=== PATIENT | female | born 1940 | race Caucasian/White ===

== ENCOUNTER 2019-06-20 18:39 | Inpatient (IN) | payer MEDICARE ==
[~2019-06-20] VITALS: Ht 162.6 cm; Wt 72.6 kg
[~2019-06-20 18:39] MED LIST: ACETAMINOPHEN325 M1 PO; ADULT LOW DOSE81 MG PO; AVELOX 400 MG400 M1 PO; BACTRIM DS TAB1 EACH PO; CEFTIN500 MG PO; FLONASE 0.05%50 MCG NS; GLUCOPHAGE XR500 M1 PO; GLYBURIDE 5 MG T5 M1 PO; MEDROLDOSEPACK PO; MUCINEX TA600 MG/TA1 PO; OSELB75 PO; PHENERGAN 25 MG25 M1 PO; PROMETHAZINE-C120 ML PO; SIMVASTATIN80 MG PO; TESSALON PERLE100 MG PO; TRANSDERM-SCOP1 EACH TD; ULTRAM 50MG TAB50 MG; VENTOLIN HFA 1818 GM INH; ZOFRAN ODT4 MG PO; ZOFRAN4 MG; ZOFRAN4 MG PO; ZPAK PO
[2019-06-20 19:19] VITALS: BP 177/101
[2019-06-20] MEDS ORDERED: LEVEMIR100 UNIT/1 SUBQ (19:26)
[2019-06-20 20:02] LABS: INFLUENZA A ANTIGEN Negative (Negative); INFLUENZA B ANTIGEN Negative (Negative)
[2019-06-20 22:06] LABS: HEMATOCRIT 37.6 % (37.0-47.0); HEMOGLOBIN 12.8 gm/dL (12.0-15.0); MCH 28.6 pg (26.0-34.0); MCHC 34.1 g/dL (28.0-37.0); MCV 83.9 fL (80.0-100.0); MPV 7.5 fl. (7.2-11.1); NUCLEATED RBCS 0 /100WBC; PLATELET COUNT* 257 thou/uL (150-400); RBC 4.49 mil/uL (4.20-5.00); RDW-CV 13.4 % (10.5-14.5); WBC 9.7 thou/uL (4.0-11.0)
[2019-06-20 22:37] LABS: ABSOLUTE LYMPHOCYTES 0.6 thou/uL (0.8-5.3); ABSOLUTE MONOCYTES 0.6 thou/uL (0.0-1.2); ABSOLUTE NEUTROPHILS 8.5 thou/uL (1.6-8.1)
[2019-06-20 22:40] LABS: PLATELET ESTIMATE ADEQUATE
[2019-06-21 00:21] LABS: CALCIUM 7.9 mg/dL (8.5-10.1); CREATININE 0.9 mg/dL (0.6-1.3); POTASSIUM 3.7 mmol/L (3.5-5.1)
[2019-06-21 00:32] LABS: TOTAL BILIRUBIN 0.4 mg/dL (<0.1-1.0); TOTAL PROTEIN 7.5 g/dL (6.4-8.2)
[2019-06-21 01:13] LABS: URINE BILIRUBIN NEGATIVE (Negative); URINE BLOOD NEGATIVE (Negative); URINE CLARITY CLEAR; URINE COLOR YELLOW; URINE GLUCOSE-RANDOM NEGATIVE (Negative); URINE KETONES TRACE (Negative); URINE LEUKOCYTES-REFLEX TRACE (Negative); URINE NITRITE-REFLEX NEGATIVE (Negative); URINE PROTEIN 2+ (Negative); URINE SPECIFIC GRAVITY >= 1.030 (1.005-1.030); URINE UROBILINOGEN 0.2 E.U./dl (0.2-1.0)
[2019-06-21 02:14] VITALS: BP 99/54
[2019-06-21 02:19] LABS: SQUAMOUS >10 Many /LPF (0-3)
[2019-06-21 02:20] LABS: HYALINE CASTS 4-10 Moderate /LPF (None Seen); URINE WBC-REFLEX 6-15 Few /HPF (0-5)
[2019-06-21 02:21] LABS: CRYSTALS None Seen /LPF (None Seen); URINE RBC 3-10 Few /HPF (0-2)
[2019-06-21 05:40] VITALS: BP 158/50
[2019-06-21 08:38] VITALS: BP 138/52
[2019-06-21 09:00] VITALS: BP 138/52
[2019-06-21 16:00] VITALS: BP 143/61
--- NOTE | 2019-06-21 16:37 | EKG ---
[place] [address] ELECTROCARDIOGRAM REPORT Name: EDNA BUTCHER Room: [address] ADM IN M.R.#: [id number] Admission: 06/21/19 Attend Phys: Vishal Harris Discharge: Date of : 38 Date of Service: 06/20/192110 Report #: [id number] THIS REPORT FOR: //name// [facility] ED Test Date: 2019-06-20 Test Time: 21:11:16 Pat Name: EDNA BUTCHER Department: Room: [facility] Gender: F Content Assistant: [place] : 1940 Requested By: Greg Caceres Order Number: [id number] MD: Goldy Henry Measurements Intervals [place] Rate: 76 P: 69 GA: 173 QRS: 59 QRSD: 102 T: 59 QT: 411 QTc: 463 Interpretive Statements Sinus rhythm Borderline low voltage, extremity leads Baseline wander in lead(s) V6 Compared to ECG 05/23/2012 14:14:42 Sinus tachycardia no longer present Atrial premature complex(es) no longer present ST (T wave) deviation no longer present Electronically Signed On 06-21-2019 16:36:50 CELL BIOLOGIST by Goldy Henry [email or web address] <ELECTRONICALLY SIGNED> By: Goldy Henry MD, FACC 06/21/19 1636 10 10 Goldy Henry MD, [facility] /EPI
[2019-06-21 21:00] VITALS: BP 142/63
[2019-06-22 03:45] LABS: ABSOLUTE EOSINOPHILS 0.2 thou/uL (0.0-0.7); ABSOLUTE LYMPHOCYTES 2.3 thou/uL (0.8-5.3); ABSOLUTE MONOCYTES 0.7 thou/uL (0.0-1.2); ABSOLUTE NEUTROPHILS 5.2 thou/uL (1.6-8.1); BASOPHILS 0.5 %; EOSINOPHILS 2.5 %; HEMATOCRIT 34.6 % (37.0-47.0); HEMOGLOBIN 12.1 gm/dL (12.0-15.0); LYMPHOCYTES 26.6 %; MCH 28.9 pg (26.0-34.0); MCV 82.6 fL (80.0-100.0); MONOCYTES 8.6 %; MPV 7.6 fl. (7.2-11.1); NUCLEATED RBCS 0 /100WBC; PLATELET COUNT* 281 thou/uL (150-400); POLYS 61.8 %; RBC 4.19 mil/uL (4.20-5.00); RDW-CV 13.6 % (10.5-14.5); WBC 8.5 thou/uL (4.0-11.0)
[2019-06-22 03:55] LABS: ALBUMIN 2.8 g/dL (3.4-5.0); CREATININE 0.8 mg/dL (0.6-1.3); POTASSIUM 3.6 mmol/L (3.5-5.1); TOTAL BILIRUBIN 0.4 mg/dL (<0.1-1.0)
[2019-06-22 08:50] VITALS: BP 141/55
[2019-06-22 16:00] VITALS: BP 139/55
[2019-06-22 21:00] VITALS: BP 173/61
[2019-06-23 08:14] VITALS: BP 136/58
[2019-06-23 16:31] VITALS: BP 147/56
[2019-06-23 20:15] VITALS: BP 160/69
[2019-06-24 05:17] LABS: ABSOLUTE EOSINOPHILS 0.3 thou/uL (0.0-0.7); ABSOLUTE LYMPHOCYTES 2.3 thou/uL (0.8-5.3); ABSOLUTE MONOCYTES 0.6 thou/uL (0.0-1.2); ABSOLUTE NEUTROPHILS 4.3 thou/uL (1.6-8.1); BASOPHILS 0.3 %; EOSINOPHILS 4.5 %; HEMATOCRIT 30.9 % (37.0-47.0); HEMOGLOBIN 10.8 gm/dL (12.0-15.0); LYMPHOCYTES 30.3 %; MCH 28.9 pg (26.0-34.0); MCV 82.6 fL (80.0-100.0); MONOCYTES 8.4 %; MPV 7.5 fl. (7.2-11.1); NUCLEATED RBCS 0 /100WBC; PLATELET COUNT* 329 thou/uL (150-400); POLYS 56.5 %; RBC 3.74 mil/uL (4.20-5.00); RDW-CV 13.3 % (10.5-14.5); WBC 7.6 thou/uL (4.0-11.0)
[2019-06-24 05:41] LABS: ALBUMIN 2.7 g/dL (3.4-5.0); CREATININE 0.7 mg/dL (0.6-1.3); POTASSIUM 3.3 mmol/L (3.5-5.1); TOTAL BILIRUBIN 0.3 mg/dL (<0.1-1.0); TOTAL PROTEIN 6.5 g/dL (6.4-8.2)
[2019-06-24 09:00] VITALS: BP 146/53
[2019-06-24] MEDS ORDERED: KEFLEX500 M1 PO (10:40)
[2019-06-24] MEDS ORDERED: TESSALON PERLE100 MG PO (10:56)
[2019-06-24 11:00] VITALS: BP 146/53
[2019-06-24 11:50] VITALS: BP 146/53
== END 2019-06-24 11:50 | disposition home or self-care (01) | DRG 202 ==
LOC: M.ERS 18:39 → M.3W 06-21 01:34 → M.TBA-ER 06-21 01:34 → M.3W 06-21 08:47
PROVIDERS: Emergency Medicine; Nurse Practitioner Family; ADMIT Internal Medicine
DX: J20.9 Acute bronchitis, unspecified (principal); N39.0 Urinary tract infection, site not specified; N17.9 Acute kidney failure, unspecified; E44.1 Mild protein-calorie malnutrition; I10 Essential (primary) hypertension; E86.0 Dehydration; E78.5 Hyperlipidemia, unspecified; E11.9 Type 2 diabetes mellitus without complications; E78.00 Pure hypercholesterolemia, unspecified; Z79.82 Long term (current) use of aspirin; Z79.84 Long term (current) use of oral hypoglycemic drugs; Z79.4 Long term (current) use of insulin; Z79.899 Other long term (current) drug therapy; Z80.3 Family history of malignant neoplasm of breast; Z83.79 Family history of other diseases of the digestive system; Z68.27 Body mass index [BMI] 27.0-27.9, adult